=== PATIENT | female | born 1955 | race Caucasian/White ===

== ENCOUNTER 2016-08-13 17:00 | Emergency (ER) | payer OTHER ==
[~2016-08-13] VITALS: Ht 157.5 cm; Wt 100.5 kg
[~2016-08-13 17:00] MED LIST: ADVAIR 100/501 DISK IH; ANTIVERT25 MG PO; ATENOLOL25 MG PO; BONIVA150 MG PO; CALCIUM 600 +1 EAC6 PO; CALCIUM CITRAT1 EA14 PO; CALCIUM600 MG PO; CITRUS CALCIUM1 EAC1 PO; CRESTOR10 MG PO; ECOTRIN325 MG PO; FIORICET WI1 CAPSULE PO; FOSAMAX70 MG PO; GABAPENTIN100 MG PO; GLUCOPHAGE1000 MG PO; GLUCOPHAGE500 MG PO; HYDROCHLOROTH12.5 M3 PO; HYDROCHLOROTHIA25 MG PO; IBUPROFEN800 MG PO; IMITREX25 MG PO; KEFLEX500 MG PO; LEVAQUIN500 MG PO; LEVOTHYROXINE112 MCG PO; LEVOTHYROXINE125 MCG PO; LISINOPRIL10 MG PO; LISINOPRIL5 MG PO; LOPRESSOR50 MG PO; MAGNESIUM OXID400 MG PO; MELOXICAM15 MG PO; METFORMIN HCL500 MG PO; PREDNISONE10 M1 PO; PRINIVIL20 MG PO; PROAIR RESPICL90 MCG IH; PROVENTIL HFA6.7 GM IH; PROVENTIL,2.5 MG/3 M IH; SPIRIVA1 INHALATI IH; SYNTHROID100 MCG PO; TENORMIN25 MG PO; TRAMADOL HCL50 MG PO; TRIAMCINOLONE A30 GM TP; TRICOR145 MG PO; VITAMIN D2000 INTUN PO; WELCHOL625 MG PO; ZESTRIL40 MG PO; ZOFRAN4 MG PO
[2016-08-13 18:24] LABS: INFLUENZA A VIRAL ANTIGEN NEGATIVE; INFLUENZA B VIRAL ANTIGEN NEGATIVE
[2016-08-13] MEDS ORDERED: PHENERGAN1.25 MG/ML PO (18:57)
[2016-08-13] MEDS ORDERED: ZITHROMAX Z-PA250 MG PO (18:57)
[2016-08-13 19:13] VITALS: BP 155/89
== END 2016-08-13 19:14 | disposition home or self-care (01) ==
LOC: EME 17:00
DX: J20.9 Acute bronchitis, unspecified (principal); I10 Essential (primary) hypertension; J45.909 Unspecified asthma, uncomplicated; E11.9 Type 2 diabetes mellitus without complications; Z79.84 Long term (current) use of oral hypoglycemic drugs
CPT/HCPCS: 87502; 99281; 99283

== ENCOUNTER 2016-10-23 19:22 | Emergency (ER) | payer OTHER ==
[~2016-10-23] VITALS: Ht 162.6 cm; Wt 102.1 kg
[~2016-10-23 19:22] MED LIST changes: +PHENERGAN1.25 MG/ML PO; +ZITHROMAX Z-PA250 MG PO
[2016-10-23 20:07] LABS: CHLORIDE 109 mEq/L (99-109); POTASSIUM 4.1 mEq/L (3.7-5.4); SODIUM 143 mEq/L (136-147)
[2016-10-23 20:08] LABS: GLUCOSE 106 mg/dL (70-99)
[2016-10-23 20:10] LABS: ANION GAP 11 MEQ/L (2-14)
[2016-10-23 20:12] LABS: GFR ESTIMATE (CALCULATED) 53 mL/min/
[2016-10-23 20:13] LABS: UREA NITROGEN (BUN) 14 mg/dL (9-23)
[2016-10-23 20:19] LABS: TROP-I INTERPRETATION NEGATIVE; TROPONIN-I < 0.01 ng/mL (0.0-0.30)
[2016-10-23] MEDS ORDERED: LEVOTHYROXINE100 MCG PO (20:34)
[2016-10-23] MEDS ORDERED: CYANOCOBALAM1000 MCG PO (20:35)
[2016-10-23] MEDS ORDERED: ZOFRAN4 MG PO (20:36)
[2016-10-23 20:56] LABS: HEMATOCRIT 40.6 % (36.0-46.0); MCHC 30.5 G/DL (30.0-36.0); MCV 88.3 FL (83-99); PLATELET COUNT 233 K/uL (156-360); RBC DIS.WIDTH-SD 48.5 % (39-53); WHITE BLOOD COUNT 6.6 K/uL (4.1-10.2)
[2016-10-23 21:22] VITALS: BP 181/140
== END 2016-10-23 21:23 | disposition left against medical advice (07) ==
LOC: EME 19:22
DX: R07.9 Chest pain, unspecified (principal); I10 Essential (primary) hypertension; Z53.29 Procedure and treatment not carried out because of patient's decision for other reasons; E11.9 Type 2 diabetes mellitus without complications; G89.29 Other chronic pain; F31.9 Bipolar disorder, unspecified; J45.909 Unspecified asthma, uncomplicated; G43.909 Migraine, unspecified, not intractable, without status migrainosus
CPT/HCPCS: 71010; 80048; 84484; 85027; 93005; 99281; 99282

== ENCOUNTER 2016-11-11 21:06 | Emergency (ER) | payer SELFPAY ==
[~2016-11-11] VITALS: Ht 154.9 cm; Wt 101.0 kg
[~2016-11-11 21:06] MED LIST changes: +CYANOCOBALAM1000 MCG PO; +LEVOTHYROXINE100 MCG PO
[2016-11-11 22:20] LABS: HEMATOCRIT 40.7 % (36.0-46.0); MCHC 30.7 G/DL (30.0-36.0); MCV 87.9 FL (83-99); MEAN PLAT.VOLUME 10.2 uM^3 (9.5-12.4); PLATELET COUNT 238 K/uL (156-360); RBC DIS.WIDTH-CV 14.6 % (11.8-14.6); RBC DIS.WIDTH-SD 46.7 % (39-53); RED BLOOD COUNT 4.63 M/uL (3.80-5.20); WHITE BLOOD COUNT 6.5 K/uL (4.1-10.2)
[2016-11-11 22:40] LABS: CHLORIDE 107 mEq/L (99-109); POTASSIUM 4.3 mEq/L (3.7-5.4); SODIUM 143 mEq/L (136-147)
[2016-11-11 22:42] LABS: GLUCOSE 170 mg/dL (70-99)
[2016-11-11 22:43] LABS: ANION GAP 9 MEQ/L (2-14)
[2016-11-11 22:44] LABS: TOTAL BILIRUBIN 0.4 mg/dL (0.0-1.0)
[2016-11-11 22:46] LABS: ALKALINE PHOSPHATASE 82 IU/L (3-129); GFR ESTIMATE (CALCULATED) 48 mL/min/
[2016-11-11 22:47] LABS: UREA NITROGEN (BUN) 19 mg/dL (9-23)
[2016-11-12 01:26] LABS: TROP-I INTERPRETATION NEGATIVE; TROPONIN-I < 0.01 ng/mL (0.0-0.30)
[2016-11-12] MEDS ORDERED: METFORMIN HCL500 MG PO (02:55)
[2016-11-12] MEDS ORDERED: LISINOPRIL40 MG PO (03:12)
[2016-11-12] MEDS ORDERED: METOPROLOL SUCC50 MG PO (03:12)
[2016-11-12] MEDS ORDERED: LEVO-T100 MCG PO (03:12)
[2016-11-12 03:19] VITALS: BP 170/88
== END 2016-11-12 03:21 | disposition left against medical advice (07) ==
LOC: EME 21:06
DX: R07.9 Chest pain, unspecified (principal); I10 Essential (primary) hypertension; R42 Dizziness and giddiness; J45.909 Unspecified asthma, uncomplicated; E11.9 Type 2 diabetes mellitus without complications; Z79.84 Long term (current) use of oral hypoglycemic drugs
CPT/HCPCS: 70450; 71010; 80053; 84484; 85027; 93005; 99281; 99284

== ENCOUNTER 2017-01-23 11:49 | Emergency (ER) | payer OTHER ==
[~2017-01-23] VITALS: Ht 157.5 cm; Wt 105.4 kg
[~2017-01-23 11:49] MED LIST changes: +LEVO-T100 MCG PO; +LISINOPRIL40 MG PO; +METOPROLOL SUCC50 MG PO
[2017-01-23 13:49] LABS: CHLORIDE 113 mEq/L (99-109); POTASSIUM 4.7 mEq/L (3.7-5.4); SODIUM 143 mEq/L (136-147)
[2017-01-23 13:51] LABS: GLUCOSE 88 mg/dL (70-99)
[2017-01-23 13:52] LABS: ANION GAP 7 MEQ/L (2-14)
[2017-01-23 13:54] LABS: GFR ESTIMATE (CALCULATED) 53 mL/min/
[2017-01-23 13:55] LABS: UREA NITROGEN (BUN) 15 mg/dL (9-23)
[2017-01-23] MEDS ORDERED: KEFLEX500 MG PO (14:23)
[2017-01-23 14:46] VITALS: BP 150/83
== END 2017-01-23 14:50 | disposition home or self-care (01) ==
LOC: EME 11:49 → RME 11:49
PROVIDERS: Physician Assistant
DX: R60.0 Localized edema (principal); L03.116 Cellulitis of left lower limb; I10 Essential (primary) hypertension; E11.9 Type 2 diabetes mellitus without complications; Z79.84 Long term (current) use of oral hypoglycemic drugs; J45.909 Unspecified asthma, uncomplicated; Z79.82 Long term (current) use of aspirin
CPT/HCPCS: 80048; 99281; 99283

== ENCOUNTER 2017-02-04 23:37 | Inpatient (IN) | payer OTHER ==
[~2017-02-04] VITALS: Ht 154.9 cm; Wt 98.2 kg
[2017-02-05 00:40] LABS: BASOPHIL COUNT 0.1 K/uL (0-0.1); EOSINOPHIL (%) 2.2 % (0-5); EOSINOPHIL COUNT 0.2 K/uL (0-0.3); HEMATOCRIT 41.2 % (36.0-46.0); IMMATURE GRANULOCYTE (%) 0.4 % (0.0-0.7); INSTRUMENT ABS NEUTROPHIL CT 7.6 K/uL; LYMPHOCYTE COUNT 1.4 K/uL (1.0-2.8); MCH 26.8 PG (29.0-34.0); MCHC 30.8 G/DL (30.0-36.0); MCV 87.1 FL (83-99); MEAN PLAT.VOLUME 9.9 uM^3 (9.5-12.4); MONOCYTE (%) 7.1 % (3-12); MONOCYTE COUNT 0.7 K/uL (0-0.8); NEUTROPHIL (%) 75.6 % (45-76); NEUTROPHIL COUNT 7.6 K/uL (1.8-6.4); PLATELET COUNT 328 K/uL (156-360); RBC DIS.WIDTH-CV 16.2 % (11.8-14.6); RBC DIS.WIDTH-SD 51.8 % (39-53); RED BLOOD COUNT 4.73 M/uL (3.80-5.20)
[2017-02-05 01:03] LABS: CHLORIDE 107 mEq/L (99-109); POTASSIUM 5.3 mEq/L (3.7-5.4); SODIUM 134 mEq/L (136-147)
[2017-02-05 01:05] LABS: GLUCOSE 114 mg/dL (70-99)
[2017-02-05 01:06] LABS: ANION GAP 8 MEQ/L (2-14)
[2017-02-05 01:07] LABS: TOTAL BILIRUBIN 0.5 mg/dL (0.0-1.0)
[2017-02-05 01:09] LABS: ALKALINE PHOSPHATASE 90 IU/L (3-129); GFR ESTIMATE (CALCULATED) 22 mL/min/
[2017-02-05 01:10] LABS: UREA NITROGEN (BUN) 44 mg/dL (9-23)
[2017-02-05 01:12] LABS: LIPASE 108 U/L (1.0-51.0); TROP-I INTERPRETATION NEGATIVE; TROPONIN-I < 0.01 ng/mL (0.0-0.30)
[2017-02-05 02:16] LABS: POINT-OF-CARE METER ID UU14100415
[2017-02-05 05:59] VITALS: BP 120/86
[2017-02-05 12:36] VITALS: BP 102/61
[2017-02-05 12:49] LABS: POINT-OF-CARE METER ID UU13113717
[2017-02-05] MEDS ORDERED: CEPHALEXIN500 MG PO (13:57)
[2017-02-05] MEDS ORDERED: SIMVASTATIN40 MG PO (14:01)
[2017-02-05 16:12] VITALS: BP 112/63
[2017-02-05 17:13] LABS: POINT-OF-CARE METER ID UU14188625
[2017-02-05 19:02] LABS: ADD MIUA? YES; BILIRUBIN NEGATIVE; BLOOD NEGATIVE; COLOR YELLOW ((YELLOW)); GLUCOSE (STRIP) NEGATIVE; KETONES NEGATIVE; LEUKOCYTES MODERATE; NITRITE NEGATIVE; PROTEIN (STRIP) NEGATIVE; SPECIFIC GRAVITY 1.019 (1.000-1.030); UROBILINOGEN 0.2 MG/DL (0.2-1.0)
[2017-02-05 19:33] LABS: CASTS PRESENT /LPF; EPITHELIAL CELLS 3+ /HPF; MUCUS NONE SEEN /LPF
[2017-02-05 19:35] LABS: BACTERIA 1+ /HPF; RED BLOOD CELLS NONE SEEN /HPF (0-5); UCUL ADDED? YES; WHITE BLOOD CELLS 30-40 /HPF (0-5)
[2017-02-05 19:45] VITALS: BP 84/52
[2017-02-05 21:00] VITALS: BP 92/50
[2017-02-05 23:42] VITALS: BP 97/58
[2017-02-06 04:02] VITALS: BP 99/62
[2017-02-06 05:26] LABS: HEMATOCRIT 35.8 % (36.0-46.0); MCH 27.9 PG (29.0-34.0); MCHC 31.8 G/DL (30.0-36.0); MCV 87.5 FL (83-99); MEAN PLAT.VOLUME 10.3 uM^3 (9.5-12.4); PLATELET COUNT 231 K/uL (156-360); RBC DIS.WIDTH-CV 16.5 % (11.8-14.6); RBC DIS.WIDTH-SD 52.7 % (39-53); RED BLOOD COUNT 4.09 M/uL (3.80-5.20); WHITE BLOOD COUNT 6.1 K/uL (4.1-10.2)
[2017-02-06 06:14] LABS: ANION GAP 11 MEQ/L (2-14); CHLORIDE 111 MEQ/L (99-109); GFR ESTIMATE (CALCULATED) 27 mL/min/; GLUCOSE 114 mg/dL (70-99); POTASSIUM 5.1 MEQ/L (3.7-5.4); SAMPLE HEMOLYSIS CHECK 0; SAMPLE ICTERIC CHECK 0; SAMPLE LIPEMIA CHECK 0; SODIUM 138 MEQ/L (136-147); UREA NITROGEN (BUN) 52 mg/dL (9-23); VANCOMYCIN, TROUGH 11.1 MCG/ML (10-20)
[2017-02-06 08:36] LABS: POINT-OF-CARE METER ID UU13113717
[2017-02-06 08:45] VITALS: BP 119/65
[2017-02-06 12:13] VITALS: BP 118/66
[2017-02-06 16:21] LABS: POINT-OF-CARE METER ID UU14188625
[2017-02-06 16:32] VITALS: BP 114/64
[2017-02-06 20:08] VITALS: BP 108/62
[2017-02-06 23:46] VITALS: BP 97/58
[2017-02-07 03:52] VITALS: BP 121/70
[2017-02-07 06:27] LABS: ANION GAP 6 MEQ/L (2-14); CHLORIDE 115 MEQ/L (99-109); GFR ESTIMATE (CALCULATED) 40 mL/min/; GLUCOSE 104 mg/dL (70-99); POTASSIUM 5.6 MEQ/L (3.7-5.4); SAMPLE HEMOLYSIS CHECK 0; SAMPLE ICTERIC CHECK 0; SAMPLE LIPEMIA CHECK 0; SODIUM 141 MEQ/L (136-147); UREA NITROGEN (BUN) 37 mg/dL (9-23)
[2017-02-07 08:13] VITALS: BP 111/67
[2017-02-07 11:23] VITALS: BP 109/68
[2017-02-07 12:09] LABS: POINT-OF-CARE METER ID UU13113717
[2017-02-07 15:39] VITALS: BP 140/80
[2017-02-07 16:38] LABS: POINT-OF-CARE METER ID UU13113717
[2017-02-07 19:53] VITALS: BP 149/75
[2017-02-07 21:17] LABS: POINT-OF-CARE METER ID UU14174225
[2017-02-07 23:48] VITALS: BP 122/82
[2017-02-08 03:58] VITALS: BP 127/76
[2017-02-08 06:16] LABS: ANION GAP 6 MEQ/L (2-14); CHLORIDE 112 MEQ/L (99-109); GFR ESTIMATE (CALCULATED) 53 mL/min/; GLUCOSE 96 mg/dL (70-99); POTASSIUM 5.2 MEQ/L (3.7-5.4); SAMPLE HEMOLYSIS CHECK 0; SAMPLE ICTERIC CHECK 0; SAMPLE LIPEMIA CHECK 0; SODIUM 141 MEQ/L (136-147); UREA NITROGEN (BUN) 29 mg/dL (9-23)
[2017-02-08 07:58] LABS: POINT-OF-CARE METER ID UU14174225
[2017-02-08 08:16] VITALS: BP 118/74
[2017-02-08] MEDS ORDERED: CEPHALEXIN500 MG PO (10:00)
[2017-02-08] MEDS ORDERED: METOPROLOL SUCC50 MG PO (10:01)
[2017-02-08 11:43] VITALS: BP 125/86
[2017-02-08 12:14] LABS: POINT-OF-CARE METER ID UU14174225
== END 2017-02-08 13:59 | disposition home health service (06) | DRG 871 ==
LOC: EME 23:37 → 5SOUTH 02-05 03:52 → EDOF 02-05 03:52 → ENRESERV 02-05 03:59 → 5SOUTH 02-05 05:40
PROVIDERS: Emergency Medicine; Hospitalist; Internal Medicine
DX: A41.9 Sepsis, unspecified organism (principal); R57.1 Hypovolemic shock; N17.9 Acute kidney failure, unspecified; E87.2 Acidosis; E11.51 Type 2 diabetes mellitus with diabetic peripheral angiopathy without gangrene; I95.9 Hypotension, unspecified; E03.9 Hypothyroidism, unspecified; I10 Essential (primary) hypertension; L03.115 Cellulitis of right lower limb; L03.116 Cellulitis of left lower limb; Z79.83 Long term (current) use of bisphosphonates; M19.90 Unspecified osteoarthritis, unspecified site; E87.5 Hyperkalemia; J45.909 Unspecified asthma, uncomplicated; E78.5 Hyperlipidemia, unspecified; E86.0 Dehydration; Z79.84 Long term (current) use of oral hypoglycemic drugs; Z79.899 Other long term (current) drug therapy; Z83.3 Family history of diabetes mellitus; Z88.0 Allergy status to penicillin; K30 Functional dyspepsia; R10.32 Left lower quadrant pain; R19.7 Diarrhea, unspecified; R60.0 Localized edema; R63.0 Anorexia; R68.83 Chills (without fever)
CPT/HCPCS: 71010; 74176; 76770; 80048; 80053; 80202; 81003; 82948; 83605; 83690; 84484; 85025; 85027; 87040; 87086; 93005; 99281; 99285; C1753; J0690; J0696; J0744; J1644; J1815; J3370; J7030; J7050

== ENCOUNTER 2017-03-18 20:23 | Emergency (ER) | payer OTHER ==
[~2017-03-18] VITALS: Ht 154.9 cm; Wt 102.4 kg
[~2017-03-18 20:23] MED LIST changes: +CEPHALEXIN500 MG PO; +SIMVASTATIN40 MG PO
[2017-03-18] MEDS ORDERED: NORCO 5/3251 TABLET PO (23:30)
[2017-03-18 23:46] VITALS: BP 157/89
== END 2017-03-18 23:46 | disposition home or self-care (01) ==
LOC: EME 20:23 → EXP 20:23
DX: M25.562 Pain in left knee (principal); I87.8 Other specified disorders of veins; Z88.0 Allergy status to penicillin; Z88.1 Allergy status to other antibiotic agents
CPT/HCPCS: 73564; 93971; 99281; 99284

== ENCOUNTER 2017-03-21 17:44 | Emergency (ER) | payer OTHER ==
[~2017-03-21] VITALS: Ht 154.9 cm; Wt 102.6 kg
[~2017-03-21 17:44] MED LIST changes: +NORCO 5/3251 TABLET PO
[2017-03-21] MEDS ORDERED: ZITHROMAX250 MG PO (19:31)
[2017-03-21] MEDS ORDERED: ROBITUSSIN NIG237 ML PO (19:31)
[2017-03-21] MEDS ORDERED: GUAIFENESIN600 M1 PO (19:31)
[2017-03-21] MEDS ORDERED: FLONASE16 G1 BOTH NARES (19:31)
[2017-03-21 19:51] VITALS: BP 136/89
== END 2017-03-21 19:52 | disposition home or self-care (01) ==
LOC: EME 17:44
DX: H66.91 Otitis media, unspecified, right ear (principal); J20.8 Acute bronchitis due to other specified organisms; J30.2 Other seasonal allergic rhinitis; Z88.0 Allergy status to penicillin; Z88.1 Allergy status to other antibiotic agents
CPT/HCPCS: 99281; 99284

== ENCOUNTER 2017-03-31 19:06 | Emergency (ER) | payer OTHER ==
[~2017-03-31] VITALS: Ht 154.9 cm; Wt 103.9 kg
[~2017-03-31 19:06] MED LIST changes: +FLONASE16 G1 BOTH NARES; +GUAIFENESIN600 M1 PO; +ROBITUSSIN NIG237 ML PO; +ZITHROMAX250 MG PO
[2017-03-31 19:32] LABS: HEMATOCRIT 39.3 % (36.0-46.0); MCH 26.6 PG (29.0-34.0); MCHC 30.3 G/DL (30.0-36.0); MCV 87.9 FL (83-99); MEAN PLAT.VOLUME 9.6 uM^3 (9.5-12.4); PLATELET COUNT 301 K/uL (156-360); RBC DIS.WIDTH-CV 15.1 % (11.8-14.6); RBC DIS.WIDTH-SD 48.5 % (39-53); RED BLOOD COUNT 4.47 M/uL (3.80-5.20); WHITE BLOOD COUNT 7.7 K/uL (4.1-10.2)
[2017-03-31 19:42] LABS: CHLORIDE 109 mEq/L (99-109); SODIUM 144 mEq/L (136-147)
[2017-03-31 19:44] LABS: GLUCOSE 100 mg/dL (70-99)
[2017-03-31 19:45] LABS: ANION GAP 8 MEQ/L (2-14)
[2017-03-31 19:48] LABS: GFR ESTIMATE (CALCULATED) 48 mL/min/
[2017-03-31 19:49] LABS: UREA NITROGEN (BUN) 13 mg/dL (9-23)
[2017-03-31] MEDS ORDERED: MOTION RELIEF25 MG PO (23:05)
[2017-03-31 23:19] VITALS: BP 123/87
== END 2017-03-31 23:25 | disposition home or self-care (01) ==
LOC: EME 19:06 → EXP 19:06
DX: R42 Dizziness and giddiness (principal); J45.909 Unspecified asthma, uncomplicated; I10 Essential (primary) hypertension; E11.9 Type 2 diabetes mellitus without complications; Z79.84 Long term (current) use of oral hypoglycemic drugs; Z79.82 Long term (current) use of aspirin; Z90.49 Acquired absence of other specified parts of digestive tract
CPT/HCPCS: 71020; 80048; 85027; 93005; 99281; 99285

== ENCOUNTER 2017-06-02 10:41 | Emergency (ER) | payer OTHER ==
[~2017-06-02] VITALS: Ht 154.9 cm; Wt 105.6 kg
[~2017-06-02 10:41] MED LIST changes: +MOTION RELIEF25 MG PO
[2017-06-02 11:29] LABS: BASOPHIL COUNT 0.1 K/uL (0-0.1); EOSINOPHIL (%) 3.1 % (0-5); EOSINOPHIL COUNT 0.3 K/uL (0-0.3); HEMATOCRIT 40.9 % (36.0-46.0); IMMATURE GRANULOCYTE (%) 0.4 % (0.0-0.7); INSTRUMENT ABS NEUTROPHIL CT 5.7 K/uL; LYMPHOCYTE COUNT 1.5 K/uL (1.0-2.8); MCH 26.4 PG (29.0-34.0); MCHC 30.1 G/DL (30.0-36.0); MCV 87.8 FL (83-99); MEAN PLAT.VOLUME 9.7 uM^3 (9.5-12.4); MONOCYTE (%) 6.9 % (3-12); MONOCYTE COUNT 0.6 K/uL (0-0.8); NEUTROPHIL (%) 70.3 % (45-76); NEUTROPHIL COUNT 5.7 K/uL (1.8-6.4); PLATELET COUNT 298 K/uL (156-360); RBC DIS.WIDTH-CV 15.3 % (11.8-14.6); RBC DIS.WIDTH-SD 49.1 % (39-53); RED BLOOD COUNT 4.66 M/uL (3.80-5.20); WHITE BLOOD COUNT 8.1 K/uL (4.1-10.2)
[2017-06-02 11:40] LABS: CHLORIDE 101 mEq/L (99-109); POTASSIUM 4.1 mEq/L (3.7-5.4); SODIUM 140 mEq/L (136-147)
[2017-06-02 11:41] LABS: GLUCOSE 121 mg/dL (70-99)
[2017-06-02 11:43] LABS: ANION GAP 12 MEQ/L (2-14)
[2017-06-02 11:45] LABS: GFR ESTIMATE (CALCULATED) > 59 mL/min/
[2017-06-02 11:46] LABS: UREA NITROGEN (BUN) 12 mg/dL (9-23)
[2017-06-02] MEDS ORDERED: ULTRAM50 MG PO (15:36)
[2017-06-02] MEDS ORDERED: CLEOCIN300 MG PO (15:36)
[2017-06-02 15:45] VITALS: BP 137/104
== END 2017-06-02 16:25 | disposition home or self-care (01) ==
LOC: EME 10:41
DX: L03.116 Cellulitis of left lower limb (principal); E66.01 Morbid (severe) obesity due to excess calories; Z68.41 Body mass index [BMI] 40.0-44.9, adult; E11.9 Type 2 diabetes mellitus without complications; I73.9 Peripheral vascular disease, unspecified; J45.909 Unspecified asthma, uncomplicated; I10 Essential (primary) hypertension; G43.909 Migraine, unspecified, not intractable, without status migrainosus; Z88.0 Allergy status to penicillin
CPT/HCPCS: 73630; 80048; 81003; 83605; 85025; 93971; 99281; 99283

== ENCOUNTER 2017-12-25 21:09 | Observation (INO) | payer OTHER ==
[~2017-12-25] VITALS: Ht 157.5 cm; Wt 109.1 kg
[~2017-12-25 21:09] MED LIST changes: +CLEOCIN300 MG PO; +ULTRAM50 MG PO
[2017-12-25 21:40] LABS: BASOPHIL (%) 0.6 % (0-1); BASOPHIL COUNT 0.1 K/uL (0-0.1); EOSINOPHIL COUNT 0.3 K/uL (0-0.3); HEMATOCRIT 37.3 % (36.0-46.0); IMMATURE GRANULOCYTE (%) 0.4 % (0.0-0.7); LYMPHOCYTE (%) 18.6 % (15-42); LYMPHOCYTE COUNT 1.5 K/uL (1.0-2.8); MCH 28.6 PG (29.0-34.0); MCHC 32.2 G/DL (30.0-36.0); MONOCYTE (%) 7.5 % (3-12); MONOCYTE COUNT 0.6 K/uL (0-0.8); NEUTROPHIL (%) 68.9 % (45-76); NEUTROPHIL COUNT 5.5 K/uL (1.8-6.4); PLATELET COUNT 241 K/uL (156-360); RBC DIS.WIDTH-CV 15.5 % (11.8-14.6); RBC DIS.WIDTH-SD 50.8 % (39-53); RED BLOOD COUNT 4.19 M/uL (3.80-5.20)
[2017-12-25 21:49] LABS: AMYLASE 67 IU/L (1-118); CHLORIDE 100 mEq/L (99-109); POTASSIUM 3.9 mEq/L (3.7-5.4); SODIUM 136 mEq/L (136-147)
[2017-12-25 21:50] LABS: GLUCOSE 183 mg/dL (70-99)
[2017-12-25 21:53] LABS: SERUM ETHYL ALCOHOL < 10 mg/dL
[2017-12-25 21:54] LABS: CREATININE 1.2 mg/dL (0.6-1.3); GFR ESTIMATE (CALCULATED) 48 mL/min/
[2017-12-25 21:55] LABS: UREA NITROGEN (BUN) 12 mg/dL (9-23)
[2017-12-25 21:57] LABS: LIPASE 77 U/L (1.0-51.0)
[2017-12-25 22:00] LABS: TROP-I INTERPRETATION NEGATIVE; TROPONIN-I < 0.01 ng/mL (0.0-0.30)
[2017-12-25 22:02] LABS: INTER. NORMALIZED RATIO 1.2
[2017-12-25 22:05] LABS: PTT 28.4 SEC (25-37)
[2017-12-26 01:10] LABS: APPEARANCE SL.HAZY ((CLEAR)); BILIRUBIN NEGATIVE; BLOOD NEGATIVE; COLOR YELLOW ((YELLOW)); GLUCOSE (STRIP) NEGATIVE; KETONES NEGATIVE; LEUKOCYTES TRACE; NITRITE NEGATIVE; PROTEIN (STRIP) 30; SPECIFIC GRAVITY 1.029 (1.000-1.030)
[2017-12-26 01:29] LABS: AMPHETAMINE NEGATIVE (500 ng/mL); BENZODIAZEPINES NEGATIVE (150 ng/mL); COCAINE NEGATIVE (150 ng/mL); METHADONE NEGATIVE (200 ng/mL); METHAMPHETAMINE NEGATIVE (500 ng/mL); OPIATES (MORPHINE) NEGATIVE (100 ng/mL); PHENCYCLIDINE NEGATIVE (25 ng/mL); THC CANNABINOIDS NEGATIVE (50 ng/mL); TRICYCLIC ANTIDEPRESSANTS NEGATIVE (300 ng/mL)
[2017-12-26 01:30] LABS: BARBITURATES PRESUMPTIVE POSITIVE (200 ng/mL); BUPRENORPHINE NEGATIVE (10 ng/mL); OXYCODONE NEGATIVE (100 ng/mL); PROPOXYPHENE NEGATIVE (300 ng/mL)
[2017-12-26 01:33] LABS: BACTERIA RARE /HPF; CALCIUM OXALATE CRYSTALS 3+ /HPF; EPITHELIAL CELLS 1+ /HPF; MUCUS TRACE /LPF; UCUL ADDED? YES
[2017-12-26 04:23] VITALS: BP 113/75
[2017-12-26 06:27] LABS: HDL CHOLESTEROL 26 MG/DL (Desirable>=50); LDL CHOLESTEROL 62 mg/dL (Desirable<100); NON-HDL CHOLESTEROL 102 mg/dL (Desirable<160); TOTAL CHOLESTEROL 128 mg/dL (Desirable<200); TRIGLYCERIDES 198 MG/DL (Normal: <150)
[2017-12-26 08:33] LABS: THYROTROPIN (TSH) 2.4 MIU/L (0.4-5.5)
[2017-12-26 10:00] LABS: HEMOGLOBIN A1c (GLYCOHEMOGLOB) 6.1 % (Below 5.7)
[2017-12-26] MEDS ORDERED: METOPROLOL SUCC50 MG PO (12:15)
== END 2017-12-26 13:22 | disposition home or self-care (01) ==
LOC: EME 21:09 → EDOF 12-26 03:17 → ENRESERV 12-26 03:19 → 4SOUTH 12-26 04:00
PROVIDERS: Emergency Medicine; Hospitalist; Physician Assistant
DX: R20.0 Anesthesia of skin (principal); R20.2 Paresthesia of skin; I10 Essential (primary) hypertension; E78.5 Hyperlipidemia, unspecified; E11.51 Type 2 diabetes mellitus with diabetic peripheral angiopathy without gangrene; E03.9 Hypothyroidism, unspecified; G43.909 Migraine, unspecified, not intractable, without status migrainosus; M19.90 Unspecified osteoarthritis, unspecified site; I89.0 Lymphedema, not elsewhere classified; Z90.49 Acquired absence of other specified parts of digestive tract; Z82.0 Family history of epilepsy and other diseases of the nervous system; Z83.3 Family history of diabetes mellitus; Z88.0 Allergy status to penicillin
CPT/HCPCS: 70450; 70551; 80048; 80061; 81003; 82150; 82948; 83036; 83690; 84443; 84484; 84999; 85025; 85610; 85730; 86850; 86900; 86901; 87086; 93005; 93880; 99281; 99285; G0378; G0480; J1650; J1815

== ENCOUNTER 2018-01-21 22:15 | Inpatient (IN) | payer OTHER ==
[~2018-01-21] VITALS: Ht 157.5 cm; Wt 102.0 kg
[2018-01-22 02:20] LABS: HEMATOCRIT 42.7 % (36.0-46.0); HEMOGLOBIN 13.9 G/DL (11.9-15.5); MCH 28.8 PG (29.0-34.0); MCHC 32.6 G/DL (30.0-36.0); MCV 88.4 FL (83-99); PLATELET COUNT 252 K/uL (156-360); RBC DIS.WIDTH-CV 15.2 % (11.8-14.6); RBC DIS.WIDTH-SD 48.4 % (39-53); RED BLOOD COUNT 4.83 M/uL (3.80-5.20); WHITE BLOOD COUNT 14.4 K/uL (4.1-10.2)
[2018-01-22 02:33] LABS: ALBUMIN 3.8 g/dL (3.2-4.8); CHLORIDE 98 mEq/L (99-109); POTASSIUM 3.4 mEq/L (3.7-5.4); SODIUM 141 mEq/L (136-147)
[2018-01-22 02:36] LABS: TOTAL PROTEIN 8.6 g/dL (6.4-8.3)
[2018-01-22 02:37] LABS: TOTAL BILIRUBIN 0.4 mg/dL (0.0-1.0)
[2018-01-22 02:39] LABS: ALKALINE PHOSPHATASE 108 IU/L (3-129); CREATININE 3.1 mg/dL (0.6-1.3); GFR ESTIMATE (CALCULATED) 16 mL/min/
[2018-01-22 02:40] LABS: UREA NITROGEN (BUN) 37 mg/dL (9-23)
[2018-01-22 02:41] LABS: AST (GOT) 52 IU/L (2-34)
[2018-01-22 02:42] LABS: ALT (GPT) 42 IU/L (3-49); LIPASE 176 U/L (1.0-51.0)
[2018-01-22 02:43] LABS: CREATINE KINASE 75 IU/L (1-294); TOTAL CK 75 IU/L (1-294)
[2018-01-22 02:48] LABS: CK-MB 3.2 ng/mL (0.0-4.9); CKMB RELATIVE INDEX 4.3 (0.0-3.9)
[2018-01-22 02:49] LABS: TROP-I INTERPRETATION NEGATIVE; TROPONIN-I < 0.01 ng/mL (0.0-0.30)
[2018-01-22 02:50] LABS: GLUCOSE 20 mg/dL (70-99)
[2018-01-22 06:15] LABS: APPEARANCE CLEAR ((CLEAR)); BILIRUBIN NEGATIVE; BLOOD SMALL; COLOR YELLOW ((YELLOW)); GLUCOSE (STRIP) NEGATIVE; KETONES NEGATIVE; LEUKOCYTES NEGATIVE; NITRITE NEGATIVE; PROTEIN (STRIP) 30; SPECIFIC GRAVITY 1.011 (1.000-1.030); UROBILINOGEN 0.2 MG/DL (0.2-1.0)
[2018-01-22 06:23] LABS: BACTERIA RARE /HPF; EPITHELIAL CELLS 1+ /HPF; MUCUS TRACE /LPF; RED BLOOD CELLS 0-5 /HPF (0-5); UCUL ADDED? NO; WHITE BLOOD CELLS 0-5 /HPF (0-5)
[2018-01-22 06:28] VITALS: BP 125/80
[2018-01-22 06:50] VITALS: BP 121/72
[2018-01-22 09:58] LABS: INTACT PARATHYROID HORMONE 16 pg/mL (10-69)
[2018-01-22] MEDS ORDERED: SYNTHROID125 MCG PO (10:05)
[2018-01-22] MEDS ORDERED: KENALOG,ARISTOC80 G1 TP (10:09)
[2018-01-22] MEDS ORDERED: MAGNESIUM OXID400 MG PO (10:09)
[2018-01-22] MEDS ORDERED: ZESTRIL40 MG PO (10:10)
[2018-01-22] MEDS ORDERED: VITAMIN D31000 UNI2 PO (10:10)
[2018-01-22] MEDS ORDERED: FUROSEMIDE40 MG PO (10:10)
[2018-01-22] MEDS ORDERED: DELTASONE20 M1 PO (10:11)
[2018-01-22] MEDS ORDERED: CALCIUM 500 MG1 EACH PO (10:11)
[2018-01-22 11:55] VITALS: BP 96/59
[2018-01-22 12:18] LABS: TROP-I INTERPRETATION NEGATIVE; TROPONIN-I < 0.01 ng/mL (0.0-0.30)
[2018-01-22 16:14] VITALS: BP 95/55
[2018-01-22 18:22] LABS: TROP-I INTERPRETATION NEGATIVE; TROPONIN-I 0.02 ng/mL (0.0-0.30)
[2018-01-22 18:27] LABS: CHLORIDE 109 MEQ/L (99-109); POTASSIUM 3.9 MEQ/L (3.7-5.4); SODIUM 145 MEQ/L (136-147); UREA NITROGEN (BUN) 23 mg/dL (9-23)
[2018-01-22 18:30] LABS: ALBUMIN 2.8 G/DL (3.4-5.0); GLOBULINS 2.9 G/DL (2.3-3.5); INTACT PARATHYROID HORMONE 15 pg/mL (10-69); TOTAL PROTEIN 5.7 G/DL (6.4-8.2)
[2018-01-22 18:43] LABS: CREATININE 1.6 MG/DL (0.6-1.3); GFR ESTIMATE (CALCULATED) 35 mL/min/; GLUCOSE 133 mg/dL (70-99)
[2018-01-22 18:59] VITALS: BP 113/57
[2018-01-22 23:06] VITALS: BP 93/51
[2018-01-23 03:59] VITALS: BP 85/53
[2018-01-23 04:01] VITALS: BP 92/54
[2018-01-23 06:06] LABS: ALBUMIN 2.5 G/DL (3.2-4.8); ALKALINE PHOSPHATASE 65 IU/L (3-129); ALT (GPT) 24 IU/L (3-49); AST (GOT) 28 IU/L (2-34); CHLORIDE 110 MEQ/L (99-109); CREATININE 1.2 MG/DL (0.6-1.3); GFR ESTIMATE (CALCULATED) 48 mL/min/; MAGNESIUM 1.2 mg/dl (1.3-2.7); PHOSPHORUS 3.3 mg/dL (2.5-4.9); POTASSIUM 3.8 MEQ/L (3.7-5.4); SODIUM 145 MEQ/L (136-147); TOTAL BILIRUBIN 0.4 MG/DL (0.0-1.0); TOTAL PROTEIN 5.3 G/DL (6.4-8.3); UREA NITROGEN (BUN) 24 mg/dL (9-23)
[2018-01-23 06:07] LABS: GLUCOSE 94 mg/dL (70-99)
[2018-01-23 06:59] LABS: BASOPHIL (%) 0.5 % (0-1); EOSINOPHIL (%) 3.7 % (0-5); EOSINOPHIL COUNT 0.2 K/uL (0-0.3); HEMATOCRIT 34.1 % (36.0-46.0); IMMATURE GRANULOCYTE (%) 0.5 % (0.0-0.7); LYMPHOCYTE (%) 36.9 % (15-42); LYMPHOCYTE COUNT 1.6 K/uL (1.0-2.8); MCH 28.4 PG (29.0-34.0); MCHC 30.8 G/DL (30.0-36.0); MCV 92.2 FL (83-99); MONOCYTE (%) 7.7 % (3-12); MONOCYTE COUNT 0.3 K/uL (0-0.8); NEUTROPHIL (%) 50.7 % (45-76); NEUTROPHIL COUNT 2.2 K/uL (1.8-6.4); RBC DIS.WIDTH-CV 15.5 % (11.8-14.6); RBC DIS.WIDTH-SD 51.8 % (39-53); WHITE BLOOD COUNT 4.3 K/uL (4.1-10.2)
[2018-01-23 07:00] VITALS: BP 95/57
[2018-01-23 07:18] LABS: HEMOGLOBIN 10.5 G/DL (11.9-15.5)
[2018-01-23 07:20] LABS: ANISOCYTOSIS NONE SEEN; PLAT.SUFFICIENCY DECREASED
[2018-01-23 07:36] LABS: PLATELET COUNT 140 K/uL (156-360)
[2018-01-23 11:25] VITALS: BP 101/59
[2018-01-23 15:51] VITALS: BP 104/65
[2018-01-23] MEDS ORDERED: CIPROFLOXACIN500 M1 PO (17:03)
[2018-01-25 13:32] LABS: ALBUMIN 2.59 G/DL (3.6-4.9); ALPHA-1 GLOBULIN 0.27 G/DL (0.15-0.40); ALPHA-2 GLOBULIN 0.66 G/DL (0.45-0.85); BETA-GLOBULIN 0.81 G/DL (0.65-1.15); GAMMA-GLOBULIN 1.37 G/DL (0.60-1.35)
== END 2018-01-23 17:52 | disposition home health service (06) | DRG 684 ==
LOC: EME 22:15 → EDOF 01-22 05:07 → 4EAST 01-22 05:07 → ENRESERV 01-22 05:10 → 4EAST 01-22 06:14 → ENRESERV 01-23 09:30 → 5EAST 01-23 13:23
PROVIDERS: Emergency Medicine; Hospitalist; Internal Medicine; Internal Medicine Nephrology
DX: N17.9 Acute kidney failure, unspecified (principal); R55 Syncope and collapse; E83.51 Hypocalcemia; I95.9 Hypotension, unspecified; E03.9 Hypothyroidism, unspecified; E78.5 Hyperlipidemia, unspecified; E87.6 Hypokalemia; E83.52 Hypercalcemia; K62.89 Other specified diseases of anus and rectum; I11.0 Hypertensive heart disease with heart failure; I50.9 Heart failure, unspecified; Z59.0 Homelessness; Z91.81 History of falling; E86.1 Hypovolemia
CPT/HCPCS: 71045; 72170; 74176; 78072; 80048 91; 80053; 81003; 82306; 82330; 82550; 82553; 82570; 82948; 83036; 83605; 83690; 83735; 83880; 83970; 84100; 84156; 84165; 84484; 84681; 85025; 85027; 87040; 87493; 93005; 99281; 99285; A9500; A9512; J0744; J1644; J7030; J7042

== ENCOUNTER 2018-01-29 03:10 | Emergency (ER) | payer OTHER ==
[~2018-01-29] VITALS: Ht 157.5 cm; Wt 108.6 kg
[~2018-01-29 03:10] MED LIST changes: +CALCIUM 500 MG1 EACH PO; +CIPROFLOXACIN500 M1 PO; +DELTASONE20 M1 PO; +FUROSEMIDE40 MG PO; +KENALOG,ARISTOC80 G1 TP; +SYNTHROID125 MCG PO; +VITAMIN D31000 UNI2 PO
[2018-01-29 03:12] VITALS: BP 125/95
== END 2018-01-29 03:56 | disposition home or self-care (01) ==
LOC: EME 03:10
DX: E11.649 Type 2 diabetes mellitus with hypoglycemia without coma (principal); I10 Essential (primary) hypertension; J45.909 Unspecified asthma, uncomplicated; Z79.82 Long term (current) use of aspirin
CPT/HCPCS: 82948; 99281; 99282